=== PATIENT | female | born 2000 | race Caucasian/White ===

== ENCOUNTER 2024-06-24 10:30 | Day surgery (SDC) | payer BC, OTHER ==
[~2024-06-24 10:30] MED LIST: Sodium Chloride 0.9% 10 ML Syringe FLUSH PRN; Sodium Chloride 0.9% 10 ML Syringe FLUSH SCH
[2024-06-24] MEDS ORDERED: Ketorolac 30 MG/ML SDV ONE (10:31)
[2024-06-24] MEDS ORDERED: Propofol 200 MG/20 ML SDV ONE (10:31)
[2024-06-24] MEDS ORDERED: Lidocaine 2% 5 ML SDV ONE (10:31)
[2024-06-24] MEDS ORDERED: Midazolam 1 MG/ML 2 ML SDV ONE (10:31)
[2024-06-24] MEDS ORDERED: Dexamethasone 4 MG/ML 5 ML MDV ONE (10:31)
[2024-06-24] MEDS ORDERED: fentaNYL 100 MCG/2 ML SDV ONE (10:31)
[2024-06-24] MEDS ORDERED: Ondansetron 4 MG/2 ML SDV ONE (10:31)
[2024-06-24] MEDS: Lactated Ringers 1,000 ML IV SCH (10:40)
[2024-06-24] MEDS: Famotidine 20 MG/2 ML SDV IVPUSH SCH (10:51)
[2024-06-24] MEDS: Acetaminophen 325 MG Tab PO SCH (10:51)
[2024-06-24] MEDS: Clindamycin Phosphate in D5W 900 MG in Premix Bag 1 BAG IV ONE (10:51)
[2024-06-24] MEDS: EPINEPHrine 1 MG/ML SDV ONE (12:33)
[2024-06-24] MEDS ORDERED: Ondansetron 4 MG/2 ML SDV IVPUSH PRN (12:36)
[2024-06-24] MEDS ORDERED: HYDROmorphone 0.5 MG/0.5 ML Syringe IVPUSH PRN (12:36)
[2024-06-24] MEDS ORDERED: fentaNYL 100 MCG/2 ML SDV IVPUSH PRN (12:36)
[2024-06-24] MEDS: Bupivacaine 0.25% 10 ML SDV ONE (15:27)
== END 2024-06-24 13:40 | disposition home or self-care (01) ==
LOC: JD.SDS 10:30
PROVIDERS: ATTEND Orthopaedic Surgery
DX: S83.242A Other tear of medial meniscus, current injury, left knee, initial encounter (principal); Z88.0 Allergy status to penicillin; X58.XXXA Exposure to other specified factors, initial encounter
CPT/HCPCS: 29881; 81025; A9270; J0171; J0665; J0736; J1100; J1885; J2250; J2405; J2704; J3010; J3490; J7120; 01400